=== PATIENT | male | born 1990 | race Caucasian/White ===

== ENCOUNTER 2023-10-19 15:15 | Outpatient (AMB) | payer MEDICAID, SELFPAY ==
--- NOTE | 2023-10-19 15:15 | MHC.OFFVIS ---
Intake Visit Reasons: Vasectomy Consult Intake Note: New Patient presents today for initial visit to establish treatment for : Vasectomy Consult Urology Medications: none Allergies to Antibiotic: none Blood Thinner: none Lead Athlete Required: No Accompanied by: Self / Same As Patient Allergies No Known Allergies Allergy (Verified 10/19/23 16:42) Medication List - Last Reconciled 10/19/23 by GANESH RajanP-BC acetaminophen-codeine 300-30 mg 1 tab PO Q8H 3 days diazepam 2 mg PO BID PRN 1 day fexofenadine (Allergy Relief (fexofenadine)) 180 mg PO DAILY PRN fluticasone propionate 50 mcg/actuation (Flonase Allergy Relief) 1 spray intranasal DAILY montelukast 10 mg PO QPM HPI Comments Details: Etienne is a pleasant 33-year-old male patient of Dr. Brandt. He presents to the office today for - vasectomy evaluation Vasectomy evaluation The patient presents for vasectomy consultation.? He is currently . He has fathered -2 children, with a single partner. The youngest child is - 4-month-old. His partner is aware and permissive for a vasectomy. Current form of control is condoms. Current employment is rn labor and delivery The vasectomy may be complicated due to a history of no complicating issues. Patient education has been provided via A[employer] video, via printed information, risks of failure, recovery time, bruising and potential pain syndrome have been stressed Discussion today focused on the presence of vasectomy and the risks, benefits and alternatives that are available. Vasectomy as intended as a permanent form of control. Printed information and literature was provided to the patient. Overall there is a one in 2500 failure rate. This can occur at any time after vasectomy. Risks were discussed highlighting hematoma, spermatocele, epididymal congestion, development of sperm antibodies, and development of chronic pain estimated between 1-5%. The procedure was reviewed in detail. Anatomical diagrams of the male genitalia were used to explain the location of the vas deferens. The vas deferens will be transected, the proximal end will be cauterized, a metal clip would be applied to separate the 2 vas deferens ends. It was explained the procedure will be done in the office and takes approximately 10-15 minutes. Less common problems that arise with vasectomy include hematoma, bleeding, allergic reaction to anesthetic, epididymal infection, epididymal congestion, scrotal discomfort, spermatic leak, spermatic granuloma and the possibility of antisperm antibodies. He understands these risks and wishes to proceed. Consent was signed at the office today. He also understands that it takes 12 weeks for sperm to fully clear the system. He will need to provide a semen sample at 12 weeks and if this is not clear a 2nd sample at 16 weeks. Medical clearance to stop using protection will only be provided if he satisfies published criteria for sperm clearance. Review of Systems Const All systems reviewed & are unremarkable except as noted in HPI and below Physical Exam Const General: cooperative, healthy appearing, comfortable, no acute distress, well developed, alert and awake Nutritional Appearance: overweight Orientation/consciousness: patient oriented x3 Limitations: no limitations HEENT Head: Yes normal to inspection, Yes normocephalic and Yes atraumatic Ears: hearing grossly normal bilaterally Eyes General: appearance normal, both eyes and all related structures Neck Neck: Yes normal visual inspection and Yes trachea midline Chest Chest palpation & inspection: normal inspection of the chest Resp Effort & Inspection: normal respiratory effort and able to speak in complete sentences Cardio Rate: regular rate GI Inspection: Yes normal to inspection General: Yes no CVA tenderness Penis: normal penis Meatus: meatus normal Scrotum: scrotum normal Testes: Testes normal Back/Spine/Pelvis Back: no CVA tenderness Skin General skin exam: no rashes or lesions noted Neuro General: patient oriented x3 Extrem General: Yes normal to inspection Psych Appearance: grossly normal and well kempt Mental Status: mental status grossly normal Speech and movement: Normal speech and movement present and Clear speech present Affect: normal affect Attitude: cooperative Thought process: Normal thought process present Thought content: Normal thought content present Insight: Fair insight present (Psych) Judgement: Fair judgement present (Psych) Results AMB Urinalysis, Automated UA Leukoctes 0 Celine/uL Last Edit by [employer] Gloria on 10/19/23 15:32 UA Nitrite Negative Last Edit by [employer] Castro on 10/19/23 15:32 UA Urobilinogen 0.2 mg/dL Last Edit by [employer] Castro on 10/19/23 15:32 UA Protein 15 mg/dL Last Edit by [employer] Gloria on 10/19/23 15:32 UA pH 6.5 Last Edit by [employer] Castro on 10/19/23 15:32 UA Blood 10 Ariel/uL Last Edit by Parker Castro on 10/19/23 15:32 UA Specific Colstrip 1.015 Last Edit by Parker Castro on 10/19/23 15:32 UA Ketone Negative Last Edit by Parker Castro on 10/19/23 15:32 UA Bilirubin 0 mg/dL Last Edit by Pakrer Castro on 10/19/23 15:32 UA Glucose 0 mg/dL Last Edit by Parker Castro on 10/19/23 15:32 Results Reviewed Results Reviewed: Laboratory Last Values Urine pH (Auto) 6.5 10/19/23 15:30 Specific Colstrip (Auto) 1.015 10/19/23 15:30 Urine Protein (Auto) 15 mg/dL 10/19/23 15:30 Glucose (UA)(Auto) 0 mg/dL 10/19/23 15:30 Urine Ketones (Auto) Negative 10/19/23 15:30 Urine Blood (Auto) 10 Ariel/uL 10/19/23 15:30 Urine Nitrite (Auto) Negative 10/19/23 15:30 Urine Bilirubin (Auto) 0 mg/dL 10/19/23 15:30 Urine Urobilinogen (Auto) 0.2 mg/dL 10/19/23 15:30 Leukocyte Esterase (Auto) 0 Celine/uL 10/19/23 15:30 Assessment & Plan Assessment & Plan (1) Anxiety about health: Code(s): R45.89 - Other symptoms and signs involving emotional state Category: Medical (2) Vasectomy evaluation: Code(s): Z30.09 - Encounter for other general counseling and advice on contraception Category: Medical Plan Discussed at length vasectomy; risks and benefits were discussed at length. All questions were answered. Prescriptions provided for medications and discussed specific instructions of bringing medication to office prior to procedure. Discussed semen analysis in office verses fellows; information provided. Consent obtained/signed. Will schedule for in office vasectomy as discussed Follow-up per doctor's orders or sooner with any issues, concerns, and or questions Orders: Orders AMB Urinalysis Automated 10/19/23 Z13.9 - Encounter for screening, unspecified Medications: New acetaminophen-codeine 300-30 mg 1 tab PO Q8H 9 tabs 0RF 3 days R45.89 - Other symptoms and signs involving emotional state diazepam Take medication after arrival at office 2 mg PO BID PRN 2 tabs 0RF anxiety 1 day R45.89 - Other symptoms and signs involving emotional state Coding Level of Care Code New Pt Level 4 (88548) Diagnoses Anxiety about health R45.89 Vasectomy evaluation Z30.09
== END 2023-10-19 15:46 | disposition home or self-care (01) ==
PROVIDERS: PCP Nurse Practitioner Primary Care; Visit Provider Nurse Practitioner Family
DX: R45.89 Other symptoms and signs involving emotional state (principal); Z30.09 Encounter for other general counseling and advice on contraception
CPT/HCPCS: 99204

== ENCOUNTER → 2023-10-19 15:15 | Outpatient (BNVA) | payer MEDICAID, SELFPAY | PROVIDERS: PCP Nurse Practitioner Primary Care; Visit Provider Nurse Practitioner Family | DX: Z30.09 Encounter for other general counseling and advice on contraception (principal); F41.8 Other specified anxiety disorders | CPT/HCPCS: 81003; 99212 ==

== ENCOUNTER 2024-09-12 15:09 | Outpatient (REF) | payer OTHER, SELFPAY ==
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
--- OUTSIDE RECORDS SUMMARY | 2024-09-12 15:20 | XMS_ITS | Encounter Summary ---
Author Organization [employer] Address [address] [place] [address] Care Team Providers Care Floor Covering Contractor Name Role Phone Vi Brandt Primary Care Provider [phone] Encounter Details Date Type Department Care Team (Latest Contact Info) Description 09/12/2024 Travel Social History Tobacco Use Types Packs/Day Years [...] AM EDT documented as of this encounter Functional Status * Over the [...] Goff [place] documented as of this encounter Plan of Treatment Upcoming Encounters Date Type Department Care Team (Late st Contact Info) Description 11/24/2024 9:30 AM EDT Office Visit [facility] MEDICINE [address] [place] [address] Vi Brandt ANP [address] [place] [address] documented as of this encounter Visit Diagnoses Not on filedocumented in this encounter Additional Health Concerns Assessment Noted Time PHQ-9 Depression Total Score: 0 09/13/19 25 2:19 PM EDT documented as of this encounter Care Teams Floor Covering Contractor Relationship Specialty Start Date End Date Vi Brandt ANP [address] [place] [id number] PCP - General Family Medicine 08/06/21 documented as of this encounter
== END 2024-09-12 15:10 | disposition home or self-care (01) ==
LOC: HO.HHCX 15:09
PROVIDERS: Visit Provider Nurse Practitioner Primary Care
DX: M25.571 Pain in right ankle and joints of right foot (principal)
CPT/HCPCS: 73610

== ENCOUNTER → 2024-09-12 15:18 | Outpatient (BNV) | payer OTHER, SELFPAY | PROVIDERS: Visit Provider Radiology Diagnostic Radiology | DX: M25.571 Pain in right ankle and joints of right foot (principal); R22.41 Localized swelling, mass and lump, right lower limb; V89.2XXA Person injured in unspecified motor-vehicle accident, traffic, initial encounter | CPT/HCPCS: 73610 ==